=== PATIENT | female | born 1950 | race Caucasian/White ===

== ENCOUNTER 2017-03-06 18:11 | Emergency (ER) | payer MEDICARE, MEDICAID ==
[~2017-03-06] VITALS: Ht 152.4 cm; Wt 54.0 kg
[~2017-03-06 18:11] MED LIST: METFORMIN; TNFMISC
[2017-03-06 18:37] LABS: GLUCOSE,POINT OF CARE 172 MG/DL (70-110)
[2017-03-06] MEDS ORDERED: INSLAN SQ (18:43)
[2017-03-06 19:46] LABS: BASOPHILS % (AUTO) 1.7 % (0.0-2.0); EOSINOPHILS % (AUTO) 0.3 % (1.0-6.0); HEMATOCRIT 39.9 % (36-46); HEMOGLOBIN 13.3 g/dL (12.0-16.0); LYMPHOCYTES # (AUTO) 2.9 K/uL (1.0-4.8); LYMPHOCYTES % (AUTO) 24.8 % (22.0-44.0); MEAN CORPUSCULAR HEMOGLOBIN 31.3 pg (26.0-34.0); MEAN CORPUSCULAR HGB CONC 33.3 G/dL (31.0-37.0); MEAN CORPUSCULAR VOLUME 94 fL (80-100); MONOCYTES # (AUTO) 0.6 K/uL (0.1-1.0); NEUTROPHILS # (AUTO) 7.9 K/uL (1.8-7.7); NEUTROPHILS % (AUTO) 68.2 % (40.0-70.0); PLATELET COUNT (AUTO) 265 K/uL (150-450); RED BLOOD CELL COUNT(AUTO) 4.25 MIL/uL (4.00-5.20); RED CELL DISTRIBUTION WIDTH 13.2 % (11.5-14.5); WHITE BLOOD COUNT (AUTO) 11.5 K/uL (4.5-11.0)
[2017-03-06 19:49] LABS: CALCIUM, TOTAL 9.7 mg/dL (8.8-10.5); CREATININE 1.71 mg/dL (0.60-1.30); POTASSIUM 3.9 mmol/L (3.5-5.1)
[2017-03-06 19:55] LABS: ALBUMIN 3.8 g/dL (3.4-5.0); BILIRUBIN,TOTAL 0.2 mg/dL (0.1-1.0); TOTAL PROTEIN, SERUM 8.5 g/dL (6.4-8.2)
[2017-03-06] MEDS ORDERED: LORazepam 2 MG/ML VIAL IVP ONE (20:45)
[2017-03-06] MEDS ORDERED: MORPHINE SULFATE 4 MG/ML SYRINGE IVP ONE (20:45)
[2017-03-06] MEDS ORDERED: ONDANSETRON HCL 4 MG/2 ML VIAL IVP ONE (20:45)
[2017-03-06 21:30] VITALS: BP 157/88
== END 2017-03-06 21:49 | disposition home or self-care (01) ==
LOC: EMS 18:13
DX: F41.9 Anxiety disorder, unspecified (principal); G44.209 Tension-type headache, unspecified, not intractable; E11.9 Type 2 diabetes mellitus without complications; I10 Essential (primary) hypertension
CPT/HCPCS: 36415; 80053; 82962; 85025; 93005; 96374; 96375; 99285; J2060; J2270; J2405

== ENCOUNTER 2017-03-09 21:12 | Inpatient (IN) | payer MEDICARE, MEDICAID ==
[~2017-03-09] VITALS: Ht 152.4 cm; Wt 61.9 kg
[~2017-03-09 21:12] MED LIST changes: +INSLAN SQ
[2017-03-09] MEDS ORDERED: TRAZ-144 PO (21:19)
[2017-03-09] MEDS ORDERED: LORazepam 1 MG TABLET PO ONE (22:30)
[2017-03-09 22:34] LABS: BASOPHILS # (AUTO) 0.02 K/uL (0.00-0.20); BASOPHILS % (AUTO) 0.3 % (0.0-2.0); EOSINOPHILS # (AUTO) 0.09 K/uL (0.00-0.70); EOSINOPHILS % (AUTO) 1.11 % (1.0-6.0); HEMATOCRIT 35.7 % (36-46); HEMOGLOBIN 12.1 g/dL (12.0-16.0); LYMPHOCYTES # (AUTO) 3.7 K/uL (1.0-4.8); LYMPHOCYTES % (AUTO) 43.6 % (22.0-44.0); MEAN CORPUSCULAR HEMOGLOBIN 32.2 pg (26.0-34.0); MEAN CORPUSCULAR HGB CONC 33.9 G/dL (31.0-37.0); MEAN CORPUSCULAR VOLUME 95 fL (80-100); MONOCYTES # (AUTO) 0.6 K/uL (0.1-1.0); MONOCYTES % (AUTO) 6.6 % (2.0-9.0); NEUTROPHILS # (AUTO) 4.1 K/uL (1.8-7.7); NEUTROPHILS % (AUTO) 48.5 % (40.0-70.0); PLATELET COUNT (AUTO) 256 K/uL (150-450); RED BLOOD CELL COUNT(AUTO) 3.75 MIL/uL (4.00-5.20); RED CELL DISTRIBUTION WIDTH 13.1 % (11.5-14.5); WHITE BLOOD COUNT (AUTO) 8.5 K/uL (4.5-11.0)
[2017-03-09 22:45] LABS: CREATININE 0.99 mg/dL (0.60-1.30); POTASSIUM 3.9 mmol/L (3.5-5.1)
[2017-03-09 22:52] LABS: ALBUMIN 3.5 g/dL (3.4-5.0); BILIRUBIN,TOTAL 0.2 mg/dL (0.1-1.0); TOTAL PROTEIN, SERUM 7.6 g/dL (6.4-8.2)
[2017-03-09] MEDS ORDERED: ASPIRIN 81 MG CHEWABLE TABLET PO ONE (23:00)
[2017-03-09] MEDS ORDERED: ACETAMINOPHEN 325 MG TABLET PO PRN (23:15)
[2017-03-09] MEDS ORDERED: ONDANSETRON HCL 4 MG/2 ML VIAL IVP PRN (23:15)
[2017-03-09] MEDS ORDERED: 0.9% SODIUM CHLORIDE 10 ML SYRINGE IVP PRN (23:15)
[2017-03-10] VITALS (7 sets, daily range): BP systolic 119–150; BP diastolic 56–77
[2017-03-10] MEDS ORDERED: PNEUMOCOCCAL VACCINE POLYVALENT 0.5 ML VIAL [PPSV23] IM ONE (01:30)
[2017-03-10] MEDS ORDERED: HydrALAZINE HCL 20 MG/ML VIAL IVP PRN (08:00)
[2017-03-10] MEDS ORDERED: DEXTROSE 50%-WATER 25 GM/50 ML SYRINGE IVP PRN (08:00)
[2017-03-10] MEDS: INSULIN GLARGINE,HUM.REC.ANLOG 100 UNITS/ML SQ SCH ×2 (08:44→22:07)
[2017-03-10] MEDS: HEPARIN SODIUM,PORCINE 5,000 UNITS/ML VIAL SQ SCH ×2 (08:46→17:25)
[2017-03-10] MEDS: TraZODone HCL 50 MG TABLET PO SCH ×2 (09:21→22:05)
[2017-03-10 11:41] LABS: HEMOGLOBIN A1C 8.2 % (4.5-6.2)
[2017-03-10 11:47] LABS: CHOL/HDL RATIO 4.7 (3.9-5.7)
[2017-03-10] MEDS: INSULIN ASPART 100 UNITS/ML SQ PRN ×2 (12:10→22:08)
[2017-03-10] MEDS ORDERED: METF500T4 PO (12:46)
[2017-03-10 16:55] LABS: CREATINE KINASE, TOTAL 97 U/L (26-192)
[2017-03-10 17:15] LABS: CREATINE KINASE MB 1.5 ng/mL (0-5)
[2017-03-10] MEDS: LISINOPRIL 20 MG TABLET PO SCH (17:25)
[2017-03-10 18:37] LABS: GLUCOSE,POINT OF CARE 127 MG/DL (70-110)
[2017-03-10 18:41] LABS: GLUCOSE COMMENT 1 Received Meds; GLUCOSE,POINT OF CARE 175 MG/DL (70-110)
[2017-03-10 18:47] LABS: GLUCOSE,POINT OF CARE 117 MG/DL (70-110)
[2017-03-11] MEDS: HEPARIN SODIUM,PORCINE 5,000 UNITS/ML VIAL SQ SCH ×3 (00:58→18:18)
[2017-03-11 04:43] VITALS: BP 180/79
[2017-03-11 06:58] LABS: BASOPHILS % (AUTO) 0.4 % (0.0-2.0); EOSINOPHILS % (AUTO) 1.4 % (1.0-6.0); HEMATOCRIT 38.1 % (36-46); HEMOGLOBIN 12.6 g/dL (12.0-16.0); LYMPHOCYTES # (AUTO) 3.4 K/uL (1.0-4.8); LYMPHOCYTES % (AUTO) 45.1 % (22.0-44.0); MEAN CORPUSCULAR HEMOGLOBIN 31.2 pg (26.0-34.0); MEAN CORPUSCULAR HGB CONC 33.1 G/dL (31.0-37.0); MEAN CORPUSCULAR VOLUME 94 fL (80-100); MONOCYTES # (AUTO) 0.5 K/uL (0.1-1.0); MONOCYTES % (AUTO) 6.5 % (2.0-9.0); NEUTROPHILS # (AUTO) 3.5 K/uL (1.8-7.7); NEUTROPHILS % (AUTO) 46.6 % (40.0-70.0); PLATELET COUNT (AUTO) 248 K/uL (150-450); RED BLOOD CELL COUNT(AUTO) 4.04 MIL/uL (4.00-5.20); WHITE BLOOD COUNT (AUTO) 7.5 K/uL (4.5-11.0)
[2017-03-11 07:10] VITALS: BP 112/58
[2017-03-11 07:31] LABS: GLUCOSE,POINT OF CARE 103 MG/DL (70-110)
[2017-03-11 07:45] LABS: ALBUMIN 3.3 g/dL (3.4-5.0); BILIRUBIN,TOTAL 0.2 mg/dL (0.1-1.0); CALCIUM, TOTAL 9.4 mg/dL (8.8-10.5); CHOL/HDL RATIO 4.6 (3.9-5.7); CREATININE 1.04 mg/dL (0.60-1.30); POTASSIUM 4.3 mmol/L (3.5-5.1); TOTAL PROTEIN, SERUM 7.4 g/dL (6.4-8.2)
[2017-03-11] MEDS: INSULIN GLARGINE,HUM.REC.ANLOG 100 UNITS/ML SQ SCH ×2 (08:02→21:00)
[2017-03-11] MEDS: LISINOPRIL 20 MG TABLET PO SCH (08:02)
[2017-03-11] MEDS: PIOGLITAZONE HCL 15 MG TABLET PO SCH (08:02)
[2017-03-11] MEDS: GABAPENTIN 300 MG CAPSULE PO SCH (08:02)
[2017-03-11] MEDS ORDERED: ASPI-1093 PO (08:09)
[2017-03-11] MEDS ORDERED: PIOG15TA13 PO (08:09)
[2017-03-11] MEDS ORDERED: HYDR25TA PO (08:09)
[2017-03-11] MEDS ORDERED: PRAV10TA39 PO (08:09)
[2017-03-11] MEDS ORDERED: GABA-531 PO (08:09)
[2017-03-11] MEDS ORDERED: PRAVASTATIN SODIUM 10 MG TABLET PO SCH (09:00)
[2017-03-11] MEDS ORDERED: ASPIRIN 81 MG CHEWABLE TABLET PO SCH (09:00)
[2017-03-11 11:16] VITALS: BP 115/60
[2017-03-11] MEDS: ACETAMINOPHEN 325 MG TABLET PO PRN (11:30)
[2017-03-11] MEDS: HYDROCHLOROTHIAZIDE 25 MG TABLET PO SCH (11:38)
[2017-03-11] MEDS: ATORVASTATIN CALCIUM 40 MG TABLET PO SCH (11:38)
[2017-03-11] MEDS: INSULIN ASPART 100 UNITS/ML SQ PRN ×2 (11:41→22:22)
[2017-03-11 15:48] VITALS: BP 104/56
[2017-03-11 19:27] LABS: GLUCOSE,POINT OF CARE 110 MG/DL (70-110)
[2017-03-11 19:40] VITALS: BP 156/60
[2017-03-11] MEDS: TraZODone HCL 100 MG TABLET PO SCH (20:41)
[2017-03-11 23:40] VITALS: BP 110/54
[2017-03-12] VITALS (15 sets, daily range): BP systolic 104–177; BP diastolic 50–78
[2017-03-12 06:07] LABS: PROTHROMBIN TIME 10.2 SEC (9.4-11.6)
[2017-03-12 06:08] LABS: BASOPHILS # (AUTO) 0.07 K/uL (0.00-0.20); EOSINOPHILS # (AUTO) 0.08 K/uL (0.00-0.70); EOSINOPHILS % (AUTO) 1.11 % (1.0-6.0); HEMATOCRIT 35.3 % (36-46); HEMOGLOBIN 11.8 g/dL (12.0-16.0); LYMPHOCYTES # (AUTO) 3.9 K/uL (1.0-4.8); LYMPHOCYTES % (AUTO) 52.4 % (22.0-44.0); MEAN CORPUSCULAR HEMOGLOBIN 31.8 pg (26.0-34.0); MEAN CORPUSCULAR HGB CONC 33.3 G/dL (31.0-37.0); MEAN CORPUSCULAR VOLUME 96 fL (80-100); MONOCYTES # (AUTO) 0.4 K/uL (0.1-1.0); MONOCYTES % (AUTO) 5.5 % (2.0-9.0); PLATELET COUNT (AUTO) 186 K/uL (150-450); RED BLOOD CELL COUNT(AUTO) 3.69 MIL/uL (4.00-5.20); RED CELL DISTRIBUTION WIDTH 13.3 % (11.5-14.5); WHITE BLOOD COUNT (AUTO) 7.4 K/uL (4.5-11.0)
[2017-03-12] MEDS: HEPARIN SODIUM,PORCINE 5,000 UNITS/ML VIAL SQ SCH ×3 (08:00→17:16)
[2017-03-12] MEDS ORDERED: LIDOCAINE HCL/PF 1% 30 ML VIAL ONE (08:31)
[2017-03-12] MEDS ORDERED: IOHEXOL 300 MG/ML 150 ML VIAL ONE ×2 (08:31→09:55)
[2017-03-12] MEDS ORDERED: SODIUM BICARBONATE 50 MEQ/50 ML VIAL ONE (08:31)
[2017-03-12] MEDS ORDERED: HEPARIN SODIUM 1000 UNITS/NS 1,000 ML ONE (08:31)
[2017-03-12] MEDS ORDERED: FentaNYL CITRATE-PF 100 MCG/2 ML VIAL ONE (08:57)
[2017-03-12] MEDS ORDERED: MIDAZOLAM HCL 2 MG/2 ML VIAL ONE (08:57)
[2017-03-12] MEDS: LISINOPRIL 20 MG TABLET PO SCH (09:00)
[2017-03-12] MEDS: INSULIN GLARGINE,HUM.REC.ANLOG 100 UNITS/ML SQ SCH ×2 (09:00→21:59)
[2017-03-12] MEDS ORDERED: NITROGLYCERIN 50 MG/D5% WATER 250 ML ONE (09:17)
[2017-03-12] MEDS ORDERED: HEPARIN SODIUM,PORCINE 1,000 UNITS/ML 10 ML VIAL ONE (09:17)
[2017-03-12] MEDS ORDERED: VERAPAMIL HCL 2.5 MG/ML 2 ML VIAL ONE (09:17)
[2017-03-12] MEDS ORDERED: SODIUM CHLORIDE 0.9% 500 ML IV ONE (09:40)
[2017-03-12] MEDS ORDERED: LIDOCAINE 1% 30 ML/SOD BICARB 8.4% 4 ML SQ ONE (09:42)
[2017-03-12] MEDS ORDERED: HEPARIN SODIUM 2,000 UNITS in HEPARIN SODIUM 1000 UNITS/NS 1,000 ML IARTER ONE (09:43)
[2017-03-12] MEDS ORDERED: IOHEXOL 300 MG/ML 150 ML VIAL IARTER ONE ×2 (09:44)
[2017-03-12] MEDS ORDERED: IOHEXOL 300 MG/ML 100 ML VIAL IARTER ONE (09:44)
[2017-03-12] MEDS ORDERED: HEPARIN SODIUM,PORCINE 5,000 UNITS/ML VIAL IVP ONE (09:55)
[2017-03-12] MEDS: HEPARIN SODIUM,PORCINE 5,000 UNITS/ML VIAL IVP ONE ×2 (09:55→10:15)
[2017-03-12] MEDS ORDERED: TICAGRELOR 90 MG TABLET ONE (09:59)
[2017-03-12] MEDS ORDERED: ASPIRIN 81 MG CHEWABLE TABLET ONE (09:59)
[2017-03-12] MEDS ORDERED: ASPIRIN 325 MG TABLET PO ONE (09:59)
[2017-03-12] MEDS ORDERED: TICAGRELOR 90 MG TABLET PO ONE (09:59)
[2017-03-12] MEDS ORDERED: METOPROLOL TARTRATE 5 MG/5 ML VIAL IVP ONE (10:08)
[2017-03-12] MEDS ORDERED: METOPROLOL TARTRATE 5 MG/5 ML VIAL ONE (10:13)
[2017-03-12] MEDS ORDERED: NITROGLYCERIN/D5W 50 MG/250 ML IV BOTTLE ICOR ONE (10:14)
[2017-03-12] MEDS ORDERED: VERAPAMIL HCL 2.5 MG/ML 2 ML VIAL ICOR ONE (10:14)
[2017-03-12] MEDS ORDERED: IOHEXOL 300 MG/ML 100 ML VIAL ONE (10:17)
[2017-03-12] MEDS: GABAPENTIN 300 MG CAPSULE PO SCH (12:14)
[2017-03-12] MEDS: ACETAMINOPHEN 325 MG TABLET PO PRN (12:15)
[2017-03-12] MEDS: PIOGLITAZONE HCL 15 MG TABLET PO SCH (12:15)
[2017-03-12] MEDS: INSULIN ASPART 100 UNITS/ML SQ PRN ×2 (12:16→21:58)
[2017-03-12] MEDS: ATORVASTATIN CALCIUM 40 MG TABLET PO SCH (14:19)
[2017-03-12] MEDS: METOPROLOL SUCCINATE 50 MG ER TABLET PO SCH (14:19)
[2017-03-12] MEDS: HYDROCHLOROTHIAZIDE 25 MG TABLET PO SCH (14:19)
[2017-03-12] MEDS ORDERED: 0.9% SODIUM CHLORIDE 10 ML SYRINGE IVP PRN (15:15)
[2017-03-12 16:53] LABS: GLUCOSE COMMENT 1 Received Meds; GLUCOSE,POINT OF CARE 153 MG/DL (70-110)
[2017-03-12] MEDS: TraZODone HCL 100 MG TABLET PO SCH (22:31)
[2017-03-12] MEDS: TICAGRELOR 90 MG TABLET PO SCH (22:31)
[2017-03-13] MEDS: HEPARIN SODIUM,PORCINE 5,000 UNITS/ML VIAL SQ SCH ×2 (00:26→09:06)
[2017-03-13 04:10] VITALS: BP 123/70
[2017-03-13 06:03] LABS: BASOPHILS # (AUTO) 0.02 K/uL (0.00-0.20); BASOPHILS % (AUTO) 0.3 % (0.0-2.0); EOSINOPHILS # (AUTO) 0.12 K/uL (0.00-0.70); EOSINOPHILS % (AUTO) 1.62 % (1.0-6.0); HEMATOCRIT 37.3 % (36-46); HEMOGLOBIN 12.4 g/dL (12.0-16.0); LYMPHOCYTES % (AUTO) 39.2 % (22.0-44.0); MEAN CORPUSCULAR HEMOGLOBIN 31.7 pg (26.0-34.0); MEAN CORPUSCULAR HGB CONC 33.3 G/dL (31.0-37.0); MEAN CORPUSCULAR VOLUME 95 fL (80-100); MONOCYTES # (AUTO) 0.5 K/uL (0.1-1.0); MONOCYTES % (AUTO) 6.6 % (2.0-9.0); NEUTROPHILS % (AUTO) 52.3 % (40.0-70.0); PLATELET COUNT (AUTO) 262 K/uL (150-450); RED BLOOD CELL COUNT(AUTO) 3.91 MIL/uL (4.00-5.20); RED CELL DISTRIBUTION WIDTH 13.1 % (11.5-14.5); WHITE BLOOD COUNT (AUTO) 7.6 K/uL (4.5-11.0)
[2017-03-13 06:33] LABS: ALBUMIN 3.3 g/dL (3.4-5.0); BILIRUBIN,TOTAL 0.3 mg/dL (0.1-1.0); CALCIUM, TOTAL 9.2 mg/dL (8.8-10.5); CREATININE 1.26 mg/dL (0.60-1.30); POTASSIUM 3.9 mmol/L (3.5-5.1); TOTAL PROTEIN, SERUM 7.4 g/dL (6.4-8.2)
[2017-03-13] MEDS: INSULIN ASPART 100 UNITS/ML SQ PRN ×2 (06:33→12:13)
[2017-03-13 07:42] VITALS: BP 100/68
[2017-03-13 08:58] LABS: GLUCOSE COMMENT 1 Received Meds; GLUCOSE,POINT OF CARE 152 MG/DL (70-110)
[2017-03-13] MEDS ORDERED: ASPIRIN 81 MG CHEWABLE TABLET PO SCH (09:00)
[2017-03-13] MEDS: LISINOPRIL 20 MG TABLET PO SCH (09:00)
[2017-03-13] MEDS: TICAGRELOR 90 MG TABLET PO SCH (09:07)
[2017-03-13] MEDS: GABAPENTIN 300 MG CAPSULE PO SCH (09:08)
[2017-03-13] MEDS: ATORVASTATIN CALCIUM 40 MG TABLET PO SCH (09:09)
[2017-03-13] MEDS: PIOGLITAZONE HCL 15 MG TABLET PO SCH (09:09)
[2017-03-13] MEDS: HYDROCHLOROTHIAZIDE 25 MG TABLET PO SCH (09:10)
[2017-03-13] MEDS: METOPROLOL SUCCINATE 50 MG ER TABLET PO SCH (09:11)
[2017-03-13] MEDS: INSULIN GLARGINE,HUM.REC.ANLOG 100 UNITS/ML SQ SCH (09:17)
[2017-03-13 11:19] VITALS: BP 117/65
[2017-03-13] MEDS ORDERED: TICA90TA PO (13:22)
[2017-03-13] MEDS ORDERED: LISI-661 PO (13:23)
[2017-03-13] MEDS ORDERED: METO-325 PO (13:24)
[2017-03-13 17:37] LABS: GLUCOSE COMMENT 1 Received Meds; GLUCOSE,POINT OF CARE 146 MG/DL (70-110)
[2017-03-14 06:58] LABS: GLUCOSE,POINT OF CARE 193 MG/DL (70-110)
== END 2017-03-13 14:55 | disposition home or self-care (01) | DRG 247 ==
LOC: EMS 21:14 → 5N 23:27 → ICU 03-12 11:19 → 5N 03-12 18:20
PROVIDERS: ADMIT Family Medicine; ATTEND Family Medicine
PROC: 027035Z Dilation of Coronary Artery, One Artery with Two Drug-eluting Intraluminal Devices, Percutaneous Approach (ICD-10-PCS; principal; 2017-03-12)
PROC: 4A023N7 Measurement of Cardiac Sampling and Pressure, Left Heart, Percutaneous Approach (ICD-10-PCS; 2017-03-12)
PROC: B2111ZZ Fluoroscopy of Multiple Coronary Arteries using Low Osmolar Contrast (ICD-10-PCS; 2017-03-12)
PROC: B2151ZZ Fluoroscopy of Left Heart using Low Osmolar Contrast (ICD-10-PCS; 2017-03-12)
DX: I21.4 Non-ST elevation (NSTEMI) myocardial infarction (principal); I16.1 Hypertensive emergency; I50.30 Unspecified diastolic (congestive) heart failure; I25.10 Atherosclerotic heart disease of native coronary artery without angina pectoris; E11.9 Type 2 diabetes mellitus without complications; I10 Essential (primary) hypertension; F41.9 Anxiety disorder, unspecified; F41.0 Panic disorder [episodic paroxysmal anxiety]; E78.5 Hyperlipidemia, unspecified; Z79.4 Long term (current) use of insulin; Z79.899 Other long term (current) drug therapy
CPT/HCPCS: 82962; 83036; 87081; 92920; 92928; 93005; 93306; 99285; J0360; J1644; J1815; J2250; J3010; J3490; Q9967

== ENCOUNTER 2019-05-04 14:23 | Emergency (ER) | payer MEDICARE, MEDICAID ==
[~2019-05-04] VITALS: Ht 152.4 cm; Wt 65.9 kg
[~2019-05-04 14:23] MED LIST changes: +ASPI-1182 PO; +GABA-531 PO; +HYDR25TA PO; +LISI-661 PO; -METFORMIN; +METO-558 PO; +PIOG15TA6 PO; +PRAV10TA39 PO; +TICA90TA PO; -TNFMISC; +TRAZ-252 PO
[2019-05-04 14:39] LABS: GLUCOSE,POINT OF CARE 97 MG/DL (70-110)
[2019-05-04 15:22] LABS: BASOPHILS % (AUTO) 0.5 % (0.0-2.0); EOSINOPHILS % (AUTO) 1.1 % (1.0-6.0); HEMATOCRIT 33.6 % (36-46); HEMOGLOBIN 11.2 g/dL (12.0-16.0); LYMPHOCYTES % (AUTO) 39.5 % (22.0-44.0); MEAN CORPUSCULAR HEMOGLOBIN 31.6 pg (26.0-34.0); MEAN CORPUSCULAR HGB CONC 33.2 G/dL (31.0-37.0); MEAN CORPUSCULAR VOLUME 95 fL (80-100); MONOCYTES # (AUTO) 0.7 K/uL (0.1-1.0); MONOCYTES % (AUTO) 7.3 % (2.0-9.0); NEUTROPHILS # (AUTO) 5.2 K/uL (1.8-7.7); NEUTROPHILS % (AUTO) 51.6 % (40.0-70.0); PLATELET COUNT (AUTO) 267 K/uL (150-450); RED BLOOD CELL COUNT(AUTO) 3.53 MIL/uL (4.00-5.20); RED CELL DISTRIBUTION WIDTH 12.7 % (11.5-14.5)
[2019-05-04] MEDS ORDERED: BARIUM SULFATE 0.1% SUSPENSION 450 ML BOTTLE PO ONE (15:30)
[2019-05-04] MEDS ORDERED: ONDANSETRON HCL 4 MG/2 ML VIAL IVP ONE (15:30)
[2019-05-04] MEDS ORDERED: MORPHINE SULFATE 4 MG/ML SYRINGE IVP ONE (15:30)
[2019-05-04 15:34] LABS: CALCIUM, TOTAL 8.9 mg/dL (8.8-10.5); CREATININE 1.15 mg/dL (0.60-1.30); POTASSIUM 4.5 mmol/L (3.5-5.1)
[2019-05-04 15:41] LABS: ALBUMIN 3.2 g/dL (3.4-5.0); BILIRUBIN,TOTAL 0.2 mg/dL (0.1-1.0); TOTAL PROTEIN, SERUM 7.4 g/dL (6.4-8.2)
[2019-05-04] MEDS ORDERED: SODIUM CHLORIDE 0.9% 100 ML ONE (16:23)
[2019-05-04] MEDS ORDERED: IOVERSOL 350 MG/ML 150 ML VIAL ONE (16:23)
[2019-05-04 16:27] LABS: APPEARANCE,URINE CLEAR (CLEAR); BILIRUBIN,URINE NEGATIVE (NEGATIVE); GLUCOSE, URINE (UA) NEGATIVE (NEGATIVE); KETONES,URINE NEGATIVE (NEGATIVE); LEUKOCYTE ESTERASE ,URINE MODERATE (NEGATIVE); NITRATE,URINE NEGATIVE (NEGATIVE); OCCULT BLOOD,URINE NEGATIVE (NEGATIVE); PH,URINE 6.5 (5.0-8.0); PROTEIN,URINE NEGATIVE (NEGATIVE); UROBILINOGEN,URINE 0.2 mg/dL (<=1.0)
[2019-05-04 16:44] LABS: RBC,URINE None Seen /HPF (0-2)
[2019-05-04 16:45] LABS: BACTERIA,URINE Rare /HPF (None Seen); RENAL EPITHELIAL CELLS,URINE Rare /LPF (None Seen); SQUAMOUS EPITHELIAL CELL,UR Few /LPF (None Seen)
[2019-05-04] MEDS ORDERED: BISMUTH SUBSALICYLATE 524 MG/30 ML SUSPENSION UDCUP PO ONE (17:45)
[2019-05-04 17:50] VITALS: BP 128/62
== END 2019-05-04 18:10 | disposition home or self-care (01) ==
LOC: EMS 14:26
DX: K52.9 Noninfective gastroenteritis and colitis, unspecified (principal); K31.84 Gastroparesis; I10 Essential (primary) hypertension; E78.00 Pure hypercholesterolemia, unspecified; E11.9 Type 2 diabetes mellitus without complications; Z79.82 Long term (current) use of aspirin; Z79.899 Other long term (current) drug therapy; Z79.4 Long term (current) use of insulin
CPT/HCPCS: 36415; 74177; 80053; 81001; 82962; 83690; 84484; 85025; 87086; 93005; 96374; 96375; 99284; J2270; J2405; J7050; Q9967